=== PATIENT | male | born 1990 | race African-American/Black ===

== ENCOUNTER → 2023-06-04 | Outpatient (CLI) | payer BC | END | disposition home or self-care (01) | LOC: CT 11:27 | DX: R22.1 Localized swelling, mass and lump, neck (principal) | CPT/HCPCS: 70490; 70540 ==

== ENCOUNTER → 2023-08-21 | Outpatient (CLI) | payer BC ==
[2023-08-21 13:44] LABS: BASOPHILS % 1.1 % (0.0-2.0); EOSINOPHILS % 3.7 % (0.0-5.0); HEMATOCRIT. 42.8 % (42.0-52.0); HEMOGLOBIN. 13.8 g/dL (14.0-18.0); LYMPHOCYTES % 29.2 % (20.0-50.0); MEAN CORPUSCULAR HEMOGLOBIN 27.4 pg (28.0-32.0); MEAN CORPUSCULAR HGB CONC 32.3 g/dL (31.0-37.0); MEAN CORPUSCULAR VOLUME 85.1 fL (80.0-94.0); MEAN PLATELET VOLUME 7.7 fl (7.4-10.4); MONOCYTES % 9.9 % (2.0-8.0); NEUTROPHILS % 56.1 % (40.0-76.0); PLATELET 255 x1000/uL (130-400); RED BLOOD CELL COUNT 5.03 mill/uL (4.7-6.1); WHITE BLOOD COUNT 3.5 x1000/uL (4.5-11.0)
[2023-08-21 13:57] LABS: CHLORIDE 107 mEq/L (98-107); SODIUM 141 mEq/L (136-145)
[2023-08-21 13:58] LABS: CALCIUM 9.2 mg/dL (8.7-10.4); CARBON DIOXIDE 29 mEq/L (21-32)
[2023-08-21 14:03] LABS: GLUCOSE 105 mg/dL (70-105)
[2023-08-21 14:04] LABS: LDL CHOLESTEROL 75 mg/dL (5-100); TRIGLYCERIDE 45 mg/dL (0-150); UREA NITROGEN BLOOD 12 mg/dL (9-23)
[2023-08-21 14:05] LABS: ALANINE AMINOTRANSFERASE 21 IU/L (10-49); ALBUMIN 4.5 g/dL (3.2-4.8); ASPARTATE AMINOTRANSFERASE 27 IU/L (<34); CHOLESTEROL 125 mg/dL (<200); HDL CHOLESTEROL 48 mg/dL (>55)
[2023-08-21 14:06] LABS: BILIRUBIN TOTAL 0.4 mg/dL (0.1-1.0); PROTEIN TOTAL 7.1 g/dL (6.0-8.3)
== END | disposition home or self-care (01) ==
LOC: LAB 12:34
PROVIDERS: ATTEND Internal Medicine
DX: Z00.01 Encounter for general adult medical examination with abnormal findings (principal)
CPT/HCPCS: 36415; 80053; 80061; 82306; 83036; 85025

== ENCOUNTER → 2023-11-20 | Outpatient (CLI) | payer BC | END | disposition home or self-care (01) | LOC: CT 12:13 | DX: J32.0 Chronic maxillary sinusitis (principal); J32.2 Chronic ethmoidal sinusitis; R09.81 Nasal congestion; J34.2 Deviated nasal septum | CPT/HCPCS: 70486 ==

== ENCOUNTER → 2024-01-15 | Outpatient (CLI) | payer BC ==
[2024-01-15 11:34] LABS: CARBON DIOXIDE 26 mEq/L (21-32); CHLORIDE 105 mEq/L (98-107); POTASSIUM 3.9 mEq/L (3.5-5.1); SODIUM 138 mEq/L (136-145)
[2024-01-15 11:35] LABS: CALCIUM 9.4 mg/dL (8.7-10.4)
[2024-01-15 11:37] LABS: T4 FREE 0.98 ng/dL (0.89-1.76); THYROID STIMULATING HORMONE 0.58 uIU/mL (0.55-4.78)
[2024-01-15 11:39] LABS: TRIGLYCERIDE 51 mg/dL (0-150)
[2024-01-15 11:40] LABS: CREATININE 0.9 mg/dL (0.6-1.3); GLUCOSE 107 mg/dL (70-105); PROTEIN TOTAL 6.8 g/dL (6.0-8.3); UREA NITROGEN BLOOD 8 mg/dL (9-23)
[2024-01-15 11:41] LABS: ALANINE AMINOTRANSFERASE 14 IU/L (10-49); ALBUMIN 4.2 g/dL (3.2-4.8); ASPARTATE AMINOTRANSFERASE 23 IU/L (<34); C REACTIVE PROTEIN QUANT 1.6 mg/L (0.0-3.0); LDL CHOLESTEROL 73 mg/dL (5-100)
[2024-01-15 11:42] LABS: BILIRUBIN DIRECT 0.1 mg/dL (<=3.0); BILIRUBIN TOTAL 0.4 mg/dL (0.1-1.0); CHOLESTEROL 128 mg/dL (<200); HDL CHOLESTEROL 44 mg/dL (>55); PHOSPHORUS 2.9 mg/dL (2.5-4.9)
[2024-01-15 12:08] LABS: CLARITY URINE CLEAR (CLEAR); COLOR URINE YELLOW (YELLOW); GLUCOSE URINE NEGATIVE (NEGATIVE); KETONES URINE NEGATIVE (NEGATIVE); LEUKOCYTE ESTERASE URINE NEGATIVE (NEGATIVE); NITRITE URINE NEGATIVE (NEGATIVE); OCCULT BLOOD URINE NEGATIVE (NEGATIVE); PH URINE 6.5 (4.5-8.0); PROTEIN URINE NEGATIVE (NEGATIVE); SPECIFIC GRAVITY URINE 1.013 (1.005-1.030); UROBILINOGEN URINE 0.2 E.U./dL (0.2-1.0)
[2024-01-15 12:46] LABS: HEPATITIS B SURFACE ANTIGEN NEGATIVE (Negative)
[2024-01-15 13:06] LABS: HEPATITIS A AB IGM NEGATIVE (Negative)
[2024-01-15 13:09] LABS: HEPATITIS B CORE AB IGM NEGATIVE (Negative)
[2024-01-15 13:10] LABS: HEPATITIS C AB NON REACTIVE (Neg) (Negative)
[2024-01-16 05:12] LABS: *T3 UPTAKE 25 % (24-39); PROSTATE SPECIFIC AG TOTAL 2.1 ng/mL (0.0-4.0); VITAMIN D 25-OH 50.5 ng/mL (30.0-100.0)
== END | disposition home or self-care (01) ==
LOC: LAB 10:02
PROVIDERS: ATTEND Internal Medicine Nephrology
DX: Z00.01 Encounter for general adult medical examination with abnormal findings (principal)
CPT/HCPCS: 36415; 80053; 80061; 80076; 81003; 82306; 82947; 83036; 83735; 83970; 84100; 84153; 84156; 84439; 84443; 84479; 86140; 86705; 86709; 87340

== ENCOUNTER → 2024-08-17 | Outpatient (CLI) | payer BC ==
[2024-08-17 15:27] LABS: CLARITY URINE CLEAR (CLEAR); COLOR URINE DARK YELLOW (YELLOW); GLUCOSE URINE NEGATIVE (NEGATIVE); KETONES URINE NEGATIVE (NEGATIVE); LEUKOCYTE ESTERASE URINE TRACE (NEGATIVE); NITRITE URINE NEGATIVE (NEGATIVE); OCCULT BLOOD URINE NEGATIVE (NEGATIVE); PH URINE 7.5 (4.5-8.0); PROTEIN URINE NEGATIVE (NEGATIVE); SPECIFIC GRAVITY URINE 1.008 (1.005-1.030); UROBILINOGEN URINE 0.2 E.U./dL (0.2-1.0)
[2024-08-17 15:38] LABS: BASOPHILS % 1.7 % (0.0-2.0); EOSINOPHILS % 2.8 % (0.0-5.0); HEMATOCRIT. 39.8 % (42.0-52.0); HEMOGLOBIN. 12.7 g/dL (14.0-18.0); LYMPHOCYTES % 33.9 % (20.0-50.0); MEAN PLATELET VOLUME 7.5 fl (7.4-10.4); MONOCYTES % 9.5 % (2.0-8.0); NEUTROPHILS % 52.1 % (40.0-76.0); PLATELET 275 x1000/uL (130-400); RED BLOOD CELL COUNT 4.77 mill/uL (4.7-6.1); RED CELL DISTRIBUTION WIDTH 13.6 % (11.6-14.6)
[2024-08-17 15:49] LABS: CREATININE 1.0 mg/dL (0.6-1.3)
[2024-08-17 15:50] LABS: LDL CHOLESTEROL 69 mg/dL (5-100); TRIGLYCERIDE 41 mg/dL (0-150); UREA NITROGEN BLOOD 9 mg/dL (9-23)
[2024-08-17 15:51] LABS: ASPARTATE AMINOTRANSFERASE 22 IU/L (<34)
[2024-08-17 15:52] LABS: BILIRUBIN TOTAL 0.3 mg/dL (0.1-1.0); PROTEIN TOTAL 6.5 g/dL (6.0-8.3)
[2024-08-17 15:54] LABS: VITAMIN B12 SERUM 1325 pg/mL (211-911)
[2024-08-17 15:55] LABS: T4 FREE 0.95 ng/dL (0.89-1.76)
[2024-08-17 16:08] LABS: BACTERIA URINE NONE SEEN; RBC URINE NONE SEEN /hpf (0-2); SQUAMOUS EPITHELIAL CELL URINE NONE SEEN /lpf (RARE/1+); WBC URINE 0-2 /hpf (0-2)
[2024-08-17 16:27] LABS: HEPATITIS C AB NON REACTIVE (Neg) (Negative)
[2024-08-19 09:11] LABS: HIV SCREEN 4G Non Reactive (Non Reactive); HSV TYPE 2 SPECIFIC AB IGG Reactive (Non Reactive); VITAMIN D 25-OH 68.9 ng/mL (30.0-100.0)
[2024-08-19 10:07] LABS: PROSTATE SPECIFIC AG TOTAL 2.0 ng/mL (0.0-4.0)
[2024-08-20 06:12] LABS: CHLAMYDIA TRACHOMATIS NAA Positive (Negative); NEISSERIA GONORRHOEAE NAA Negative (Negative)
== END | disposition home or self-care (01) ==
LOC: LAB 13:42
PROVIDERS: ATTEND Family Medicine Adult Medicine
DX: G44.89 Other headache syndrome (principal); Z00.01 Encounter for general adult medical examination with abnormal findings; Z11.3 Encounter for screening for infections with a predominantly sexual mode of transmission
CPT/HCPCS: 36415; 71046; 80053; 80061; 81003; 82306; 82607; 83036; 83540; 83550; 84153; 84439; 84443; 85025; 86592; 86695; 86696; 86705; 87389; 87491; 87591

== ENCOUNTER → 2024-12-24 | Outpatient (CLI) | payer BC ==
[2024-12-24 14:01] LABS: BASOPHILS % 0.1 % (0.0-2.0); EOSINOPHILS % 1.4 % (0.0-5.0); HEMATOCRIT. 44.6 % (42.0-52.0); HEMOGLOBIN. 14.3 g/dL (14.0-18.0); LYMPHOCYTES % 29.3 % (20.0-50.0); MEAN PLATELET VOLUME 7.4 fl (7.4-10.4); MONOCYTES % 10.5 % (2.0-8.0); NEUTROPHILS % 58.7 % (40.0-76.0); PLATELET 267 x1000/uL (130-400); RED BLOOD CELL COUNT 5.26 mill/uL (4.7-6.1); RED CELL DISTRIBUTION WIDTH 13.4 % (11.6-14.6)
[2024-12-24 14:03] LABS: CLARITY URINE CLEAR (CLEAR); COLOR URINE YELLOW (YELLOW); GLUCOSE URINE NEGATIVE (NEGATIVE); KETONES URINE 1+ (NEGATIVE); LEUKOCYTE ESTERASE URINE TRACE (NEGATIVE); NITRITE URINE NEGATIVE (NEGATIVE); OCCULT BLOOD URINE NEGATIVE (NEGATIVE); PH URINE 7.0 (4.5-8.0); PROTEIN URINE TRACE (NEGATIVE); SPECIFIC GRAVITY URINE 1.030 (1.005-1.030); UROBILINOGEN URINE 1.0 E.U./dL (0.2-1.0)
[2024-12-24 14:26] LABS: FOLIC ACID (FOLATE) SERUM 17.08 ng/mL (>5.38)
[2024-12-24 14:32] LABS: VITAMIN B12 SERUM 1287 pg/mL (211-911)
[2024-12-24 15:05] LABS: SQUAMOUS EPITHELIAL CELL URINE FEW /lpf (RARE/1+)
[2024-12-24 15:06] LABS: MUCUS URINE 3+ /lpf (NONE/TRACE); WBC URINE 0-2 /hpf (0-2)
[2024-12-24 15:07] LABS: RBC URINE NONE SEEN /hpf (0-2)
[2024-12-24 15:08] LABS: BACTERIA URINE NONE SEEN
== END | disposition home or self-care (01) ==
LOC: LAB 13:22
PROVIDERS: ATTEND Family Medicine Adult Medicine
DX: Z00.00 Encounter for general adult medical examination without abnormal findings (principal)
CPT/HCPCS: 36415; 81003; 82150; 82607; 82728; 82746; 83036; 83540; 83550; 85025; 87389; 87491; 87591